=== PATIENT | male | born 1950 | race Caucasian/White ===

== ENCOUNTER 2018-04-27 17:51 | Emergency (ER) | payer MEDICARE ==
[2018-04-27] MEDS ORDERED: IBUPROFEN 600 MG TAB PO STA (18:19)
[2018-04-27 18:28] VITALS: BP 130/81; PULSE 92; RESP 18; TEMP 97.1
--- NOTE | 2018-04-27 18:30 | ED ---
Lower Extremity Injury HPI - General Stated Complaint: rt ankle injury Time Seen by Provider: 04/27/18 18:06 - History of Present Illness Initial Comments: 67 year-old male patient presents to emergency department today for evaluation of right ankle pain and swelling. Patient states early this morning he was working in the yard and he twisted his ankle. States he didn't have much difficulty however once he began to rest for short periods around 4 PM he began to have more pain to the ankle. Patient states he is having difficulty in relating. States ankle feels very stiff. He denies any previous injury to the ankle. Denies any other injuries. Denies any numbness or tingling to the foot. Patient denies any headache, neck pain, back pain, chest pain, shortness of breath, dizziness, weakness, abdominal pain, nausea, vomiting, or difficulties with bowel movements or urination. - Related Data Home Medications Medication Instructions Recorded Confirmed Ascorbic Acid [Vitamin C] 500 mg PO DAILY 04/27/18 04/27/18 Aspirin 325 mg PO DAILY 04/27/18 04/27/18 Bioflex 1 tab PO DAILY 04/27/18 04/27/18 Multivitamins, Thera [Multivitamin 1 tab PO DAILY 04/27/18 04/27/18 (formulary)] Claflin-3 Fatty Acids [Claflin-3] 1,000 mg PO 04/27/18 Prostaglan 1 tab PO DAILY 04/27/18 04/27/18 Previous Rx's Medication Instructions Recorded Ibuprofen [Motrin] 600 mg PO Q8HR PRN #30 tab 04/27/18 Allergies Allergy/AdvReac Type Severity Reaction Status Date / Time No Known Allergies Allergy Verified 04/27/18 18:50 Review of Systems ROS Statement: Those systems with pertinent positive or pertinent negative responses have been documented in the HPI. ROS Other: All systems not noted in ROS Statement are negative. General Exam General appearance: alert, in no apparent distress, other (This is a well- developed, well-nourished adult male patient in no acute distress. ) Eye exam: Present: normal appearance, PERRL, EOMI. Absent: scleral icterus, conjunctival injection, periorbital swelling ENT exam: Present: normal exam, normal oropharynx, mucous membranes moist Respiratory exam: Present: normal lung sounds bilaterally. Absent: respiratory distress, wheezes, rales, rhonchi, stridor Cardiovascular Exam: Present: regular rate, normal rhythm, normal heart sounds. Absent: systolic murmur, diastolic murmur, rubs, gallop, clicks Extremities exam: Present: tenderness (Tenderness over the anterior right ankle) , normal capillary refill, other (Patient has soft tissue swelling surrounding the right lateral malleolus. The patient has decreased range of motion due to increased pain with movement. Skin is pink, warm, and dry. Cap refills less than 3 seconds. Pedal pulses 2+ and equal bilaterally.). Absent: normal inspection, full ROM (Decreased range of motion due to increased pain with movement.), pedal edema, joint swelling, calf tenderness Neurological exam: Present: alert, oriented X3, CN II-XII intact Psychiatric exam: Present: normal affect, normal mood Skin exam: Present: warm, dry, intact, normal color. Absent: rash Course Vital Signs 04/27/18 18:00 Temperature 97.1 F L Pulse Rate 92 Respiratory 18 Rate Blood Pressure 130/81 O2 Sat by Pulse 96 Oximetry Medical Decision Making - Medical Decision Making 67-year-old male patient presented to the emergency department today for evaluation of right ankle pain and discomfort. Physical examination did reveal swelling surrounding the right lateral malleolus. Neurovascular status is intact. X-ray of the ankle was reviewed and showed no acute osseous abnormalities. Did discuss findings and results with the patient. Did discuss his symptoms most likely reflect ankle sprain. We discussed rest, ice, elevation, and pain management with ibuprofen. He'll be placed in an air cast. He is instructed to follow-up with his primary care physician for repeat x- rays in 7-10 days if symptoms persist. Return parameters were discussed in detail. He verbalizes understanding and agrees with this plan. - Radiology Data Radiology results: report reviewed, image reviewed Three-view x-ray of the left ankle are obtained. Ankle mortise is anatomic. I see no fracture nor dislocation. There is plantar calcaneal spur. There is mild vascular calcification. Impression by Dr. Thakkar shows calcaneal spurring. No fracture seen. Disposition Clinical Impression: Right ankle sprain Disposition: HOME SELF-CARE Condition: Good Instructions: Ankle Sprain (ED) Additional Instructions: Keep splint in place for comfort and support. Rest, ice, and elevate the extremity. Apply ice 20 minutes at a time at least 4 times daily. Have repeat x-ray performed in 7-10 days if your symptoms do not improve. Return here immediately for any new, worsening, or concerning symptoms. Prescriptions: Ibuprofen [Motrin] 600 mg PO Q8HR PRN #30 tab PRN Reason: Pain Is patient prescribed a controlled substance at d/c from ED?: No Referrals: Kaykay Muñoz MD [Primary Care Provider] - 1-2 days Time of Disposition: 18:53
--- NOTE | 2018-04-27 18:43 | XR ---
EXAMINATION TYPE: XR ankle complete RT DATE OF EXAM: 04/27/2018 COMPARISON: NONE HISTORY: Ankle pain TECHNIQUE: 3 views FINDINGS: Ankle mortise is anatomic. I see no fracture nor dislocation. There is plantar calcaneal sp ur. There is mild vascular calcification. IMPRESSION: Calcaneal spurring. No fracture seen.
== END 2018-04-27 19:22 | disposition home or self-care (01) ==
LOC: EC 17:51
DX: S93.401A Sprain of unspecified ligament of right ankle, initial encounter (principal); Z79.82 Long term (current) use of aspirin; Z79.899 Other long term (current) drug therapy; X50.1XXA Overexertion from prolonged static or awkward postures, initial encounter; Y93.01 Activity, walking, marching and hiking; Y92.096 Garden or yard of other non-institutional residence as the place of occurrence of the external cause
CPT/HCPCS: 73610; 99283; 29515; L4350

== ENCOUNTER → 2018-08-14 | Outpatient (CLI) | payer MEDICARE ==
--- NOTE | 2018-08-14 11:50 | US ---
EXAMINATION TYPE: US carotid duplex BILAT DATE OF EXAM: 08/14/2018 COMPARISON: NONE CLINICAL HISTORY: I65.23 Occlusion and stenosis of bilateral carotid. Stenosis EXAM MEASUREMENTS: RIGHT: Peak Systolic Velocity (PSV) cm/sec ----- Right CCA: 105.6 ----- Right ICA: 81.4 ----- Right ECA: 87.7 ICA/CCA ratio: 0.8 RIGHT: End Diastole cm/sec ----- Right CCA: 28.5 ----- Right ICA: 25.8 ----- Right ECA: 6.8 LEFT: Peak Systolic Velocity (PSV) cm/sec ----- Left CCA: 85.3 ----- Left ICA: 99.6 ----- Left ECA: 99.6 ICA/CCA ratio: 1.2 LEFT: End Diastole cm/sec ----- Left CCA: 23.4 ----- Left ICA: 29.3 ----- Left ECA: 18.6 VERTEBRALS (direction of flow): Right Vertebral: Antegrade Left Vertebral: Antegrade Rhythm: Normal No elevated velocities, no significant stenosis. IMPRESSION: Mild degree of grayscale atheromatous plaquing with no sonographically evident hemodynam ically significant stenosis within either visualized carotid arterial system. Criteria for Assigning % of Stenosis / Diameter reduction (Estimation based on the indirect measurements of the internal carotid artery velocities (ICA PSV). 1. Normal (no stenosis)=ICA PSV < 125 cm/s: ratio < 2.0: ICA EDV<40 cm/s. 2. Less than 50% stenosis=ICA PSV < 125 cm/s: ratio < 2.0: ICA EDV<40 cm/s. 3. 50 to 69% stenosis=ICA PSV of 125 to 230 cm/s: ration 2.0 ? 4.0: ICA EDV 40-100 cm/s. 4. Greater than 70% stenosis to near occlusion= ICA PSV > 230 cm/s: ratio > 4.0: ICA EDV > 100 cm/s. 5. Near occlusion= ICA PSV velocities may be low or undetectable: variable ratio and ICA EDV. 6. Total occlusion=unable to detect flow.
--- NOTE | 2018-08-14 12:03 | US ---
EXAMINATION TYPE: US kidneys/renal and bladder DATE OF EXAM: 08/14/2018 COMPARISON: NONE CLINICAL HISTORY: ABNORMAL RESULTS OF KFT R94.4. Abnormal results of kidney function studies EXAM MEASUREMENTS: Right Kidney: 9.7 x 5.4 x 6.0 cm Left Kidney: 11.0 x 7.0 x 5.0 cm Right Kidney: no hydronephrosis or masses seen Left Kidney: no hydronephrosis or masses seen Bladder: wnl Bilateral Jets seen: yes There is no evidence for hydronephrosis at this point in time. No nephrolithiasis is seen. No odette s are identified. The urinary bladder is anechoic. Bilateral ureteral jets are seen. IMPRESSION: No hydronephrosis or nephrolithiasis of either kidney.
== END | disposition home or self-care (01) ==
LOC: RADUSWWP 10:13
PROVIDERS: ATTEND Internal Medicine
DX: I65.23 Occlusion and stenosis of bilateral carotid arteries (principal); R94.4 Abnormal results of kidney function studies
CPT/HCPCS: 76770; 93880

== ENCOUNTER → 2019-05-21 | Outpatient (CLI) | payer MEDICARE ==
--- NOTE | 2019-05-21 14:26 | XR ---
EXAMINATION TYPE: XR chest 2V DATE OF EXAM: 05/21/2019 COMPARISON: Low-dose lung screening CT July 05, 2017 HISTORY: Cough for 3 weeks. TECHNIQUE: Frontal and lateral views of the chest are obtained. FINDINGS: Background chronic emphysematous and parenchymal changes bilaterally There is no new suspi cious focal air space opacity, pleural effusion, or pneumothorax seen. The cardiac silhouette size r emains within normal limits. Osseous structures are intact.. IMPRESSION: Chronic emphysematous and parenchymal changes without acute pulmonary process.
== END | disposition home or self-care (01) ==
LOC: RADXRMAIN 14:08
PROVIDERS: ATTEND Internal Medicine
DX: J43.9 Emphysema, unspecified (principal); J98.4 Other disorders of lung
CPT/HCPCS: 71046

== ENCOUNTER → 2021-02-03 | Outpatient (CLI) | payer MEDICARE ==
--- NOTE | 2021-02-03 12:24 | NM ---
EXAMINATION TYPE: NM stress cardiolite complete DATE OF EXAM: 02/03/2021 COMPARISON: NONE HISTORY: I 25.9 TECHNIQUE: After the intravenous administration of 9.3 mCi Tc 99m Sestamibi - Rest images obtained 4 5 minutes post injection. The patient exercised using a MAKEDA protocol and 1 minute prior to peak e xercise was injected with 25.6 mCi Tc 99m Sestamibi - Stress images obtained 15 minutes post injectio n. FINDINGS: Targeted heart rate was achieved during performance of the study. Review of stress and rest SPECT deysi ges demonstrates decreased uptake along the inferior wall the left ventricle on both stress and rest images towards the base the heart, there is decreased uptake towards the apex along the inferior wall greater on stress images than on rest images. Gated analysis shows normal wall motion with an estim ated left ventricular ejection fraction of 59 %. 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 This message alert has been sent to Kaykay Muñoz MD vi a the preferences provided by the clinician for the receipt of Radiology Critical Findings. Message I D [id number].
--- NOTE | 2021-02-03 18:55 | P.STRESS ---
- Stress Test Note Stress Test Results/Findings: Exam Performed: NM stress cardiolite complete Exam Date: 02/03/21 Reason for Exam: PALPITATIONS Height: 6 ft 3 in Weight: 103 kg Protocol: CARDIOLITE Stage: 2 Duration of Exercise: 6:30 Resting Heart Rate: 62 Resting Blood Pressure: 125/82 Maximum Achieved Heart Rate: 130 Maximum Achieved Blood Pressure: 200/93 85% PMHR: 128 100% PMHR: 151 METS: 7.1 Technologist Comment: Stress Test Results/Findings: Baseline heart rate 62 beats a minute, Baseline blood pressure 125/82 mmHg Baseline crit EKG shows sinus rhythm normal [place] right bundle branch block pattern normal ST segments Impression exercised on a Willian protocol for 6-1/2 minutes, achieving a peak heart rate of 130 beats a minute PVCs were noted intermittently No nonsustained atrial tachycardia Peak blood pressure 200/93 mmHg No clear-cut evidence for ischemia Impression Average exercise capacity Intermittent PVCs with exercise without nonsustained ventricular tachycardia No clear-cut evidence for ischemia
--- NOTE | 2021-02-06 10:46 | EST ---
Stress Test Results/Findings: Exam Performed: NM stress cardiolite complete Exam Date: 02/03/21 Reason for Exam: PALPITATIONS Height: 6 ft 3 in Weight: 103 kg Protocol: CARDIOLITE Stage: 2 Duration of Exercise: 6:30 Resting Heart Rate: 62 Resting Blood Pressure: 125/82 Maximum Achieved Heart Rate: 130 Maximum Achieved Blood Pressure: 200/93 85% PMHR: 128 100% PMHR: 151 METS: 7.1 Technologist Comment: Stress Test Results/Findings: Baseline heart rate 62 beats a minute, Baseline blood pressure 125/82 mmHg Baseline crit EKG shows sinus rhythm normal [place] right bundle branch block pattern normal ST segments Impression exercised on a Willian protocol for 6-1/2 minutes, achieving a peak heart rate of 130 beats a minute PVCs were noted intermittently No nonsustained atrial tachycardia Peak blood pressure 200/93 mmHg No clear-cut evidence for ischemia Impression Average exercise capacity Intermittent PVCs with exercise without nonsustained ventricular tachycardia No clear-cut evidence for ischemia MTDD
== END | disposition home or self-care (01) ==
LOC: RADNMMAIN 08:04
PROVIDERS: ATTEND Internal Medicine
DX: I25.9 Chronic ischemic heart disease, unspecified (principal)
CPT/HCPCS: 93017; 78452; A9500

== ENCOUNTER → 2021-02-25 | Outpatient (CLI) | payer MEDICARE ==
[2021-02-25 15:18] LABS: HCT 46.2 % (39.0-53.0); HGB 15.5 gm/dL (13.0-17.5); MCH 34.3 pg (25.0-35.0); MCHC 33.6 g/dL (31.0-37.0); MCV 102.2 fL (80.0-100.0); Mean Platelet Volume 8.1; Platelet Count 222 k/uL (150-450); RBC 4.52 m/uL (4.30-5.90); RDW 11.7 % (11.5-15.5); WBC 9.5 k/uL (3.8-10.6)
[2021-02-25 15:24] LABS: African American GFR (CKD) >90 (>60 ml/min/1.73 sqM); Anion Gap 10 mmol/L; Blood Urea Nitrogen 20 mg/dL (9-20); Carbon Dioxide 24 mmol/L (22-30); Chloride 106 mmol/L (98-107); Non-African American GFR(CKD) 80 (>60 ml/min/1.73 sqM); Potassium 4.6 mmol/L (3.5-5.1); Sodium 140 mmol/L (137-145)
== END | disposition home or self-care (01) ==
LOC: LABPAT 14:24
PROVIDERS: ATTEND Internal Medicine Interventional Cardiology
DX: Z01.812 Encounter for preprocedural laboratory examination (principal); R06.02 Shortness of breath
CPT/HCPCS: 36415; 80051; 82565; 84520; 85027

== ENCOUNTER 2021-03-17 06:31 | Day surgery (SDC) | payer MEDICARE ==
[2021-03-12 13:49] VITALS: BMI 28.1
[~2021-03-17 06:31] MED LIST: ALPRAZolam 0.25 MG TAB PO PRN; ALPRAZolam 0.5 MG TAB PO PRN; HEPARIN SODIUM,PORCINE 10,000 UNIT in SODIUM CHLORIDE 0.9% 1,000 ML IRRIGATION PRN; HEPARIN SODIUM,PORCINE 2,500 UNIT in SODIUM CHLORIDE 0.9% 250 ML IRRIGATION PRN; NITROGLYCERIN SL TABS 0.4 MG TAB SUBLINGUAL PRN; SODIUM CHLORIDE 0.9% 1,000 ML in EMPTY BAG 1 BAG IV ONE
[2021-03-17] MEDS ORDERED: SODIUM CHLORIDE 0.9% 1,000 ML IV ONE (06:47)
[2021-03-17] MEDS ORDERED: ASPIRIN 325 MG TAB PO ONE (07:00)
[2021-03-17] MEDS ORDERED: ATORVASTATIN 80 MG TAB PO ONE (07:00)
[2021-03-17 07:03] VITALS: RESP 16; TEMP 97.9
[2021-03-17 07:03] LABS: Glucose,Whole Blood 156 mg/dL (75-99)
[2021-03-17] MEDS ORDERED: VERAPAMIL 2.5 MG/ML 2 ML AMP ONE (07:15)
[2021-03-17] MEDS ORDERED: LIDOCAINE 1% INJ 10MG/ML (20 ML MDV) ONE ×2 (07:15→07:59)
[2021-03-17] MEDS ORDERED: MIDAZOLAM 2 MG/2 ML VIAL IV ONE (07:45)
[2021-03-17] MEDS ORDERED: LIDOCAINE 1% INJ 10MG/ML (20 ML MDV) SQ ONE ×2 (07:50→08:00)
[2021-03-17] MEDS: VERAPAMIL SYRINGE (5 MG/10 ML) INTRAARTER ONE ×2 (07:51→08:14)
[2021-03-17] MEDS ORDERED: HEPARIN SODIUM 1,000 UN/ML (10ML VL) ONE (07:53)
[2021-03-17] MEDS ORDERED: IOPAMIDOL-370 125ML BTL INJ ONE (08:13)
[2021-03-17] MEDS ORDERED: HYDROmorphone 0.5 MG/0.5 ML SYRINGE IVP ONE (08:17)
[2021-03-17] MEDS ORDERED: RX INFO: IV CONTRAST WAS GIVEN 1 EACH MISC MISCELLANE PRN (08:25)
[2021-03-17] MEDS ORDERED: SODIUM CHLORIDE 0.9% 1,000 ML IV SCH (08:30)
--- NOTE | 2021-03-17 11:51 | LTR ---
DATE OF SERVICE: 03/17/[address] Muñoz: Mr. Nain Arce underwent today heart catheterization that revealed mild disease involving the right and left coronary systems. The LVEDP was also within normal limits. I advise maximize medical treatment including aggressive cholesterol control and follow up with the patient. Sincerely, VIJAY / BRENNAN: [id number] /
--- NOTE | 2021-03-17 11:58 | CC ---
CARDIAC CATHETERIZATION REPORT DATE OF SERVICE: March 17, 2021. PERFORMING PHYSICIAN: Dalton Santacruz MD. PROCEDURE PERFORMED: 1. Selective right and left coronary angiogram. 2. Left heart catheterization. INDICATION: This is a 70-year-old gentleman with hypertension and dyslipidemia and diabetes who was experiencing chest discomfort and underwent stress test and that came into be abnormal. Because of that, a heart catheterization was advised. APPROACH: Right radial artery and right common femoral artery. COMPLICATION: None. LEVEL OF SEDATION: Moderate with sedation length of 28 minutes. PROCEDURE DESCRIPTION: After obtaining informed consent, the patient was brought to the cardiac slab conditioner supervisor. Initially we cannulated the right radial artery using micropuncture technique under ultrasound guidance, the micropuncture wire passed easily then I placed a 6-Gambian sheath at the right radial artery. I had hard time advancing initially a 0.035 wire and subsequently a Glidewire across the right elbow, but the wire was advanced all the way to the ascending aorta, but subsequently I had a hard time advancing and a 5-Gambian JR4 catheter because of the extreme tortuosity and because of that I decided to abort the radial approach and access the right common femoral artery. Right common femoral artery was cannulated using micropuncture technique. Micropuncture wire passed easily. Then I placed a 6-Gambian sheath at the right common femoral artery. After that I did selective right and left coronary angiogram with JR4 and JL4 catheters. After that, left heart catheterization was performed using 5-Gambian pigtail catheter. The procedure was completed without any complication. 1. SELECTIVE CORONARY ANGIOGRAM: The RCA is a large caliber vessel. It is a dominant vessel, appeared to have mild disease only. The left main has mild disease only. The left circumflex is a large caliber vessel. It is a nondominant vessel and appeared to be angiographically normal and gives rise into first and 2nd and 3rd obtuse marginal branches, both appear to have mild disease only. The LAD: The LAD is a large caliber vessel. The LAD is angiographically normal. It gives rise into the 1st, 2nd and 3rd obtuse marginal branches. All appeared to be angiographically normal. HEMODYNAMICS: The LVEDP was about 10 mmHg without significant gradient across aortic valve. CONCLUSION: 1. Mild nonobstructive coronary artery disease. 2. Normal LVEDP. POSTPROCEDURE MANAGEMENT: Medical treatment. MMODL / IJN: [id number] /
[2021-03-17 13:27] VITALS: BP 142/67; PULSE 56
== END 2021-03-17 13:27 | disposition home or self-care (01) ==
LOC: CATHCVL 06:31
PROVIDERS: ATTEND Internal Medicine Interventional Cardiology
DX: R07.89 Other chest pain (principal); I10 Essential (primary) hypertension; E78.5 Hyperlipidemia, unspecified; F17.210 Nicotine dependence, cigarettes, uncomplicated
CPT/HCPCS: 93458; 76937; C1894; C1769 ×2; C1760; J2250; J2001; J1644; J1170; Q9967

== ENCOUNTER → 2024-03-13 | Outpatient (CLI) | payer MEDICARE ==
--- NOTE | 2024-03-13 10:34 | MR ---
EXAMINATION TYPE: MR Prostate wo/w con DATE OF EXAM: 03/13/2024 9:10 AM COMPARISON: None. CLINICAL INDICATION:Male, 73 years old with history of N40.1 ENLARGED PROSTATE; Enlarged prostate, lo wer urinary tract symptoms. TECHNIQUE: Multi-planar, multi-sequence imaging of the pelvis is performed prior to and following the uncomplicated administration of bolus intravenous gadolinium. CONTRAST: 8 Gadavist Interpretive Criteria: PI-RADS v2.1 SERUM PSA: 01-20-24 = 1.58 01-01-21 = 1.9 SURGICAL PATHOLOGY: No data available. FINDINGS: Prostatic dimensions: 5.6 x 5.1 x 4.1 cm. Ellipsoid Volume:61.31 (PSA density=0.03 ng/mL/mL) CENTRAL GLAND (Central and Transition Zones/CZ+TZ): Multiple bilateral, heterogenous appearing hypertrophic stromal nodules, without suspicious lesion. M edian lobe hypertrophy with protrusion into the base of the bladder. (PI-RADS 2) PERIPHERAL ZONE (PZ): Bilateral linear, indistinct wedgelike areas of low ADC, and low T2 signal, No evidence of masslike a bnormality, or localized perfusional hypervascularity, to further suggest a focus of clinically signi ficant prostate cancer. (PI-RADS 2) SEMINAL VESICLES (SV): Symmetric and unremarkable. PERIPROSTATIC TISSUES: Unremarkable. LYMPH NODES: No enlarged pelvic lymph node. REMAINING PELVIS: Bladder wall is within normal limits given distention. Mild bladder wall thickening most pronounced a nteriorly thought to be due to underdistention. No abnormal free or organized intrapelvic fluid collection. No pathologic bowel dilation or mural thickening. Colonic diverticula are present. No hernia visualized OSSEOUS STRUCTURES: No suspicious osseous abnormality. IMPRESSION: 1. No specific features for high-risk prostate cancer. Maximum PI-RADS score: 2. 2. Moderate BPH, estimated gland volume 61.31 mL. 3. No suspicious osseous lesion. No lymphadenopathy. No evidence of prostate adenocarcinoma involving the periprostatic tissues. 4. Colonic diverticulosis
== END | disposition home or self-care (01) ==
LOC: RADMRIMAIN 07:59
PROVIDERS: ATTEND Internal Medicine
DX: N40.1 Benign prostatic hyperplasia with lower urinary tract symptoms (principal); K57.30 Diverticulosis of large intestine without perforation or abscess without bleeding
CPT/HCPCS: 72197; A9585

== ENCOUNTER → 2024-05-24 | Outpatient (CLI) | payer MEDICARE ==
[2024-05-24 15:52] LABS: African American GFR (CKD) >90 (>60 ml/min/1.73 sqM); Blood Urea Nitrogen 22 mg/dL (9-20); Non-African American GFR(CKD) >90 (>60 ml/min/1.73 sqM)
--- NOTE | 2024-05-24 18:14 | CT ---
EXAMINATION TYPE: CT ChestAbdPelvis wo/w con CT DLP: 1496.7 mGycm, Automated exposure control for dose reduction was used. DATE OF EXAM: 05/24/2024 4:42 PM COMPARISON: 07/05/2017 CLINICAL INDICATION: Male, 74 years old with history of Z77.090 CONTACT WITH ASBESTOS R10.9 ABD PAIN R63.0; PHH, contact with asbestos Technique: CT ChestAbdPelvis wo/w con; Multiple axial images were obtained. Two-dimensional coronal a nd sagittal reconstructions were obtained. Images were obtained before and after the utilization of I V contrast. Contrast used:100 mL of Isovue 300 without and with IV Contrast, Oral contrast used: without Oral Contrast Findings: CHEST: LUNGS/ PLEURA: Right lung base nodule/atelectasis. Satellite nodule also present measuring, nodule me asuring 13 x 8 and 3 mm series 11 image 54 and 11. No focal consolidation, pneumothorax or pleural ef fusion. No pleural thickening or pleural plaque visualized. Scattered centrilobular and paraseptal em physema changes. AIRWAY: Patent and unremarkable. HEART: Size within normal limits.Atherosclerosis of the arterial vasculature. MEDIASTINUM: No gross evidence of adenopathy. VASCULATURE: No aortic aneurysm. No filling defect within the pulmonary arterial vasculature central ly. Scattered atherosclerosis of the arterial vasculature. MUSCULOSKELETAL: No acute osseous abnormalities. SOFT TISSUES/LYMPH NODES: Unremarkable. LOWER NECK: No significant findings. ABDOMEN: ABDOMEN LIVER: Unremarkable GALLBLADDER AND BILE DUCTS: Unremarkable. PANCREAS: Calcific density in the pancreatic head/uncinate process. SPLEEN: Unremarkable. ADRENAL GLANDS: Unremarkable. KIDNEYS AND URETERS: No evidence of hydronephrosis or renal calculus. The ureters are unremarkable. PELVIS BLADDER: Unremarkable REPRODUCTIVE: Prostate is enlarged in size measuring 5.0 cm in transverse dimension. ABDOMEN & PELVIS STOMACH AND BOWEL: No evidence of bowel obstruction. Scattered colonic diverticulosis. PERITONEUM/RETROPERITONEUM: No evidence of pneumoperitoneum or free fluid. VASCULATURE: No evidence of aortic aneurysm. MUSCULOSKELETAL: No acute osseous abnormalities LYMPH NODES: No gross evidence for lymphadenopathy. SOFT TISSUE/ABDOMINAL WALL: Unremarkable IMPRESSION: 1. Nodular-like area within the left lung base near the diaphragm with satellite 4 mm nodule. Short- term follow-up recommended to ensure this is a pulmonary nodule not just atelectasis/scarring. Altern atively pet/CT could be performed. No other mass or enlarging lymphadenopathy. No pleural thickening or pleural plaquing definitively visualized. 2. Moderate emphysema changes. 3. Colonic diverticulosis. 4. Prostatomegaly, correlate with serum PSA.
== END | disposition home or self-care (01) ==
LOC: RADCTMAIN 15:02
PROVIDERS: ATTEND Internal Medicine
DX: Z77.090 Contact with and (suspected) exposure to asbestos (principal); R63.0 Anorexia; J43.9 Emphysema, unspecified; K57.30 Diverticulosis of large intestine without perforation or abscess without bleeding; N40.0 Benign prostatic hyperplasia without lower urinary tract symptoms; R91.1 Solitary pulmonary nodule
CPT/HCPCS: 36415; 71270; 74178; 82565; 84520

== ENCOUNTER → 2024-10-03 | Outpatient (CLI) | payer MEDICARE ==
--- NOTE | 2024-10-04 09:10 | MR ---
EXAMINATION TYPE: MR pancreas / mrcp wo/w con DATE OF EXAM: 10/04/2024 8:50 AM COMPARISON: CT May 24, 2024. CLINICAL INDICATION: Male, 74 years old with history of K85.90 ACUTE PANCREATITIS WITHOUT NECROSIS OR INFECT, Acute pancreatitis IV Contrast: 8 cc Gadobutrol (None if empty) CONTRAST: Standard multiplanar, multisequence MRI departmental protocol images were obtained without contrast a nd with 8 mL intravenous Gadobutrol gadolinium contrast. Thin and thick slice MRCP imaging performed on the MRI scanner. Imaging performed of the abdomen focusing on the pancreas. FINDINGS: Liver/pancreas/gallbladder/biliary system: Correlating with CT there is abrupt cut off of the pancrea s in the distal body. There is a 1.2 cm soft tissue nodule towards the splenic hilum likely reflects splenule or accessory pancreatic tissue separate from the remainder of the pancreas. Liver is normal in size without protocol. Gallbladder appears unremarkable without stones. No concerning solid or cys tic intrahepatic mass. MRCP images show no significant intrahepatic or extrahepatic biliary dilatatio n. MRCP imaging is suboptimal in evaluating pancreatic duct due to positioning. Pancreatic duct is be tter seen on T2 coronal images is contiguous without abnormal dilatation or significant focal narrowi ng. No obvious concerning focal solid or cystic lesion in the pancreas is identified. Focal small Mati cification in the pancreatic head is better seen on CT, presumed glandular in location. Other: There is bibasilar atelectasis dependently. Kidneys show no concerning lesion or hydronephrosi s. There is a tortuous abdominal aorta without AAA. Adrenal glands show left-sided prominence but sig nal dropout consistent with benign lipid rich hyperplasia. No abnormal bowel dilatation. There is end plate changes with spurring at the left L2-L3 level. IMPRESSION: Suboptimal MRCP imaging. No suspicious pancreatic ductal dilatation. No concerning focal pancreatic s olid or cystic masses. [facility], , 10/04/2024 9:08 AM
== END | disposition home or self-care (01) ==
LOC: RADMRIMAIN 07:47
PROVIDERS: ATTEND Internal Medicine
DX: K85.90 Acute pancreatitis without necrosis or infection, unspecified (principal)
CPT/HCPCS: 74183; A9585